=== PATIENT | female | born 1990 | race American Indian/Alaskan Native ===

== ENCOUNTER 2017-07-19 17:57 | Emergency (ER) | payer MEDICAID, OTHER ==
[2017-07-19 18:07] VITALS: BP 147/80
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
== END 2017-07-19 19:30 | disposition home or self-care (01) ==
LOC: JP.ED 17:57
DX: N30.90 Cystitis, unspecified without hematuria (principal)
CPT/HCPCS: 81001; 81025; 99284-25